=== PATIENT | female | born 1955 ===

== ENCOUNTER 2019-08-14 10:31 | Outpatient (CLI) | payer MEDICARE ==
--- NOTE | 2019-08-14 11:19 | MMO ---
Left Breast MAMMO Unilat Diag DDI LT+PABLO. CLINICAL HISTORY: Patient is 64 years old and is seen for diagnostic exam. The patient has the following family history of breast cancer: sister, at age 45. The patient has no personal history of cancer. VIEWS: The views performed were: left craniocaudal with tomosynthesis; left mediolateral oblique with tomosynthesis; and left mediolateral with tomosynthesis. FILMS COMPARED: The present examination has been compared to prior imaging studies performed at [facility] on 02/18/2019 and 02/24/2019, at [facility] on 08/14/2019, and at [facility] on 01/29/2018. This study has been interpreted with the assistance of computer-aided detection. MAMMOGRAM FINDINGS: There are scattered fibroglandular densities. Left focal asymmetry on CC is stable. NO abnormality seen on US. There are no suspicious masses, suspicious calcifications, or new areas of architectural distortion. IMPRESSION: THERE IS NO MAMMOGRAPHIC EVIDENCE OF MALIGNANCY. A ROUTINE FOLLOW-UP MAMMOGRAM IN 6 MONTHS IS RECOMMENDED. THE RESULTS OF THIS EXAM WERE SENT TO THE PATIENT. ACR BI-RADS Category 2 - Benign finding MAMMOGRAPHY NOTE: 1. A negative mammogram report should not delay a biopsy if a dominant of clinically suspicious mass is present. 2. Approximately 10% to 15% of breast cancers are not detected by mammography. 3. Adenosis and dense breasts may obscure an underlying neoplasm. Reported by: KAIA WELLS MD Electonically Signed: [id number]
--- NOTE | 2019-08-14 14:03 | ULT ---
LEFT BREAST ULTRASOUND: 08/14/19 HISTORY: Correlation is made with mammogram done same day. Sonographic evaluation of the left retroareolar breast demonstrates no abnormality. IMPRESSION: BIRADS 2: Benign Finding(s) Routine annual screening mammography (for women over age 40). Return in six months for bilateral screening mammography.
== END 2019-08-14 10:32 | disposition home or self-care (01) ==
LOC: BICMAMMO 10:31
PROVIDERS: ATTEND Internal Medicine
DX: R92.8 Other abnormal and inconclusive findings on diagnostic imaging of breast (principal)
CPT/HCPCS: 76642; 77065; G0279